=== PATIENT | female | born 1990 | race Caucasian/White ===

== ENCOUNTER 2016-08-12 14:32 | Emergency (ER) | payer OTHER | END 2016-08-12 16:40 | disposition home or self-care (01) | LOC: ER 14:32 | DX: F41.9 Anxiety disorder, unspecified (principal); R07.9 Chest pain, unspecified; R00.2 Palpitations | CPT/HCPCS: 93005; 99284 ==

== ENCOUNTER 2016-08-26 00:56 | Emergency (ER) | payer OTHER ==
[2016-08-26 01:25] LABS: BASO % 0.2 % (0.1-1.2); EOS # 0.1 10_X3_uL (0.0-0.4); EOS % 1.3 % (0.7-5.8); GRAN # 1.3 10_X3_uL (1.6-6.1); GRAN % 23.8 % (34.0-71.1); HEMATOCRIT 34.4 % (34-45); HEMOGLOBIN 12.2 g/dL (11.2-15.7); LYMPH # 3.5 10_X3_uL (1.2-3.7); LYMPH % 65.8 % (19.3-51.7); MEAN CORPUSCULAR HEMOGLOBIN 31.3 pg (27.0-33.0); MEAN CORPUSCULAR HGB CONC 35.5 g/dL (32.0-36.0); MEAN CORPUSCULAR VOLUME 88.2 fL (79-95); MEAN PLATELET VOLUME 10.3 fl (7.5-11.5); MONO # 0.5 10_X3_uL (0.2-0.9); MONO % 8.9 % (4.7-12.5); PLATELET COUNT 178 x10_3/uL (182-369); RED CELL DISTRIBUTION WIDTH 11.7 % (11.7-14.4); WHITE BLOOD COUNT 5.3 x10_3/uL (4.0-10.0)
[2016-08-26 01:59] LABS: BLOOD UREA NITROGEN 16 mg/dL (7-18); CALCIUM 8.8 mg/dL (8.7-10.7); CARBON DIOXIDE 26 mmol/L (21-32); CREATININE 0.7 mg/dL (0.6-1.3); GLUCOSE,RANDOM 88 mg/dL (70-99); POTASSIUM 3.5 mmol/L (3.5-5.1); SODIUM 143 mmol/L (136-145)
== END 2016-08-26 02:40 | disposition home or self-care (01) ==
LOC: ER 00:56
PROVIDERS: General Practice
DX: R07.89 Other chest pain (principal); F41.9 Anxiety disorder, unspecified; F17.210 Nicotine dependence, cigarettes, uncomplicated; Z79.899 Other long term (current) drug therapy
CPT/HCPCS: 36415; 71010; 80048; 81025; 85025; 93005; 99070; 99285-25